=== PATIENT | male | born 1980 | race Caucasian/White ===

== ENCOUNTER → 2018-11-07 | Outpatient (CLI) | payer OTHER ==
[2014-11-30 17:32] VITALS: BP 122/76
== END ==
LOC: RAD 09:32
DX: S69.92XA Unspecified injury of left wrist, hand and finger(s), initial encounter (principal)

== ENCOUNTER → 2024-05-29 | Day surgery (SDC) | payer OTHER ==
[~2024-05-29] MED LIST: Lidocaine PF 2% (20 MG/ML) 2 ML VIAL ONE
== END ==
LOC: MSO 07:10
DX: Z12.11 Encounter for screening for malignant neoplasm of colon (principal)
CPT/HCPCS: 00812; J2704; J7120